=== PATIENT | female | born 1990 | race Caucasian/White ===

== ENCOUNTER 2019-11-23 11:02 | Emergency (ER) | payer OTHER ==
[~2019-11-23] VITALS: Ht 157.5 cm; Wt 61.2 kg
--- NOTE | 2019-11-23 11:10 | NUR ---
came in for generalized body rash x 2 days. to er bed 10, hooked to monitor, changed to hosp gown, warm blanket provided. patient [id number] , breathing even and unlabored. awaiting md mallory
--- NOTE | 2019-11-23 11:57 | NUR ---
dr barry at bedside
[2019-11-23] MEDS ORDERED: diphenhydrAMINE HCL 50 MG/ML VIAL IV ONE (12:00)
[2019-11-23] MEDS ORDERED: predniSONE 50 MG TABLET PO ONE (12:00)
[2019-11-23] MEDS ORDERED: diphenhydrAMINE HCL 50 MG/ML VIAL ONE (12:27)
[2019-11-23] MEDS ORDERED: predniSONE 20 MG TABLET ONE (12:28)
[2019-11-23] MEDS ORDERED: predniSONE 10 MG TABLET ONE (12:28)
[2019-11-23 12:30] LABS: BASOPHILS % (AUTO) 0.2 % (0.0-2.0); EOSINOPHILS % (AUTO) 2.4 % (0.0-6.0); HEMATOCRIT 48 % (33-45); HEMOGLOBIN 15.9 g/dL (11.5-14.8); LYMPHOCYTES # (AUTO) 1.7 /CMM (0.8-4.8); LYMPHOCYTES % (AUTO) 24.3 % (20.0-44.0); MEAN CORPUSCULAR HGB CONC 33 g/dl (31.0-36.0); MEAN CORPUSCULAR VOLUME 91 fL (82-100); MONOCYTES # (AUTO) 0.4 /CMM (0.1-1.30); MONOCYTES % (AUTO) 5.4 % (2.0-12.0); NEUTROPHILS # (AUTO) 4.7 /CMM (1.8-8.9); NEUTROPHILS % (AUTO) 67.7 % (43.0-81.0); PLATELET COUNT (AUTO) 240 /CMM (150-450); RED BLOOD CELL COUNT(AUTO) 5.28 MIL/uL (4.0-5.2)
[2019-11-23] MEDS ORDERED: IV NS 0.9% 1,000 ML BAG IV ONE (12:30)
--- NOTE | 2019-11-23 12:30 | NUR ---
patient stated she's going to take [employer] and have someone merchandise pickup/receiving associate her car from the hosp
[2019-11-23 13:43] LABS: CALCIUM, SERUM 9.1 mg/dL (8.5-10.1); CREATININE 0.6 mg/dL (0.6-1.3); POTASSIUM 4.4 mmol/L (3.5-5.1)
--- NOTE | 2019-11-23 14:29 | NUR ---
IV removed. Catheter intact and site benign. Pressure and 4x4 applied to site. No bleeding noted.Patient discharged to home in stable condition. Written and verbal after care instructions given. Patient verbalizes understanding of instruction.
[2019-11-23 14:30] VITALS: BP 112/61
== END 2019-11-23 14:30 | disposition home or self-care (01) ==
LOC: ER 11:05
DX: L30.9 Dermatitis, unspecified (principal)
CPT/HCPCS: 36415; 80048; 83605; 84703; 85025; 85652; 86140; 96374; 99283; J1200; J7030; J7512 ×2